=== PATIENT | female | born 1975 | race American Indian/Alaskan Native ===

== ENCOUNTER 2017-05-08 10:41 | Emergency (ER) | payer OTHER ==
[2017-05-08 10:41] VITALS: BMI 39.4
[2017-05-08 10:49] VITALS: RESP 18
[2017-05-08] MEDS ORDERED: Sodium Chloride 0.9% 1,000 ML IV ONE (11:39)
[2017-05-08] MEDS ORDERED: Dexamethasone 4 mg/1 ml IVP STA (11:40)
[2017-05-08] MEDS ORDERED: Sodium Chloride 0.9% 1,000 ML ONE (11:51)
[2017-05-08] MEDS ORDERED: Dexamethasone 4 mg/1 ml ONE (11:52)
--- NOTE | 2017-05-08 11:55 | C.PDOC ---
History Of Present Illness 41 year old female comes in complaining of right-sided back pain that radiates down the right leg for the past few days. Patient is seeing pain management and is taking Tramadol with mild relief, and has been taking it for 1.5 months. Patient also reports migraine type headache and was seen at [place] for the same symptoms. Patient was given meds in the ER, but is unsure of what she was given. Patient states that the headache has resolved, but the back pain still persists and was discharge from the hospital without any meds. Today she reports fever and urine appeared dark. Denies weakness, numbness, trauma, or any other complaints. Time Seen by Provider: 05/08/17 11:20 Chief Complaint (Nursing): Back Pain History Per: Patient History/Exam Limitations: no limitations Onset/Duration Of Symptoms: Days (Few days) Current Symptoms Are (Timing): Still Present Quality Of Discomfort: "Pain" Severity: Mild Associated Symptoms: denies: New Weakness, New Numbness Recent travel outside of the [place]: No Additional History Per: Patient Past Medical History Reviewed: Historical Data, Nursing Documentation, Vital Signs Vital Signs: Last Vital Signs Temp 89.6 F L 05/08/17 14:27 Pulse 72 05/08/17 14:27 Resp 18 05/08/17 14:27 BP 104/70 05/08/17 14:27 Pulse Ox 100 05/08/17 14:47 - Medical History PMH: Anxiety, Back Problems, Bronchitis, Depression, Diabetes (pre), HIV, HTN Surgical History: No Surg Hx Family History: States: Unknown Family Hx - Social History Hx Tobacco Use: Yes Hx Alcohol Use: No Hx Substance Use: No - Immunization History Hx Tetanus Toxoid Vaccination: Yes Hx Influenza Vaccination: Yes Hx Pneumococcal Vaccination: Yes Review Of Systems Constitutional: Positive for: Fever Cardiovascular: Negative for: Chest Pain, Palpitations Respiratory: Negative for: Cough, Shortness of Breath Gastrointestinal: Negative for: Vomiting, Abdominal Pain, Diarrhea Genitourinary: Positive for: Frequency. Negative for: Dysuria Musculoskeletal: Positive for: Back Pain Neurological: Positive for: Headache. Negative for: Weakness, Numbness Physical Exam - Physical Exam Appears: Non-toxic, No Acute Distress Skin: Warm, Dry Head: Atraumatic, Normacephalic Eye(s): bilateral: Normal Inspection Neck: Normal ROM Chest: Symmetrical Cardiovascular: Rhythm Regular, No Murmur Respiratory: Normal Breath Sounds, No Rales, No Rhonchi, No Wheezing Gastrointestinal/Abdominal: Soft, No Tenderness, No Distention, No Guarding Back: Normal Inspection (no rash), No CVA Tenderness, No Vertebral Tenderness, Paraspinal Tenderness (Paralumbar) Extremity: Normal ROM (x4), No Tenderness, No Pedal Edema, No Deformity, No Swelling Neurological/Psych: Oriented x3, Normal Speech, Normal Motor, Normal Sensation, Other (No focal deficit) Gait: Steady ED Course And Treatment - Laboratory Results Result Diagrams: 05/08/17 11:47 05/08/17 11:47 Lab Interpretation: No Acute Changes O2 Sat by Pulse Oximetry: 100 (RA) Pulse Ox Interpretation: Normal - Other Rad Abd & Pelvis CT X-Ray: Viewed By Me, Read By Radiologist Interpretation: Accession No. : [id number]. Patient Name / ID : ASHLEY WEN / [id number]. Exam Date : 05/08/2017 13:02:28 ( Approved ). Study Comment : Sex / Age : F / 41Y. Creator : Demar Allan MD. Dictator : Labor Relations Consultant : Job Order Clerk : Demar Allan MD. Approver2 : Report Date : 05/08/2017 14:08:32. My Comment : . PROCEDURE: CT abdomen pelvis dated . HISTORY: Right flank and low back pain, blood in urine. COMPARISON : None. TECHNIQUE: Contiguous helical/transaxial images of the abdomen and pelvis. Oral contrast was administered. No IV contrast given. Coronal and Sagittal reformats generated. Radiation dose: Total exam DLP = 1124.9mGy-cm. This CT exam was performed using one or more of the following dose reduction techniques: Automated exposure control, adjustment of the mA and/or kV according to patient size, and/or use of iterative reconstruction technique. FINDINGS: LOWER THORAX: Minor focal areas of presumed atelectasis and or scarring both lower lung gage. . LIVER: Liver exhibits normal size measuring approximately 17 cm in CC dimension. The to the no obvious hepatic mass collection or calcification seen on this noncontrast study the listen. GALLBLADDER AND BILE DUCTS: Multiple intraluminal gallbladder calculi are present. PANCREAS: The pancreas is slightly atrophic and fatty replaced. The no obvious pancreatic mass or collection this noncontrast study. No calcification or significant ductal dilatation or calcification. SPLEEN: Spleen exhibits normal size and attenuation pattern without mass collection or calcification. ADRENALS: No adrenal lesions. KIDNEYS AND URETERS: The kidneys demonstrate relatively symmetric size. No elbow evidence of nephrolithiasis or hydronephrosis. No obvious renal mass or collection seen on this noncontrast study seen on. BLADDER: The urinary bladder is incompletely distended which may in part account for thick-walled appearance. Cystitis must be excluded. REPRODUCTIVE: Unremarkable as visualized. . APPENDIX: Normal- appearing appendix of best seen on coronal image number [id number]. BOWEL: Evaluation of the bowel is limited due to the lack of oral contrast. Stomach is incompletely distended which presumably accounts for thick-walled appearance. Gastritis not excluded. Visualized loops of small bowel exhibit normal contour and caliber. No evidence acute mechanical small bowel obstruction. . Stool and air seen throughout the large bowel. There are a few scattered colonic diverticula however no radiographic evidence of acute diverticulitis. PERITONEUM: Unremarkable. No fluid collection. No free air. The small fat containing umbilical hernia. A 2nd small slightly more superiorly located fat containing ventral wall hernia is present. LYMPH NODES: Unremarkable. No enlarged lymph nodes. VASCULATURE: Unremarkable. No aortic aneurysm. BONES: There are no acute compression fractures no retropulsed fragments. Minor chronic anterior stature loss of the T12 and to a lesser degree L1 segments. OTHER FINDINGS: None. IMPRESSION: No evidence of nephrolithiasis. Incomplete distention of the urinary bladder which may in part account for thick-walled appearance however cystitis must be excluded ; correlation with urinalysis recommended. Cholelithiasis. Few scattered colonic diverticula however no radiographic evidence of acute diverticulitis. Medical Decision Making Medical Decision Making: Impression: back pain, sciatica Plans: * CT Abd/Pel w/o * Decadron * Valium * Toradol * IV fluids * Blood labs * UA NJRX: 04/23/2017 TRAMADOL HCL 50 MG TABLET 90 03/23/2017 TRAMADOL HCL 50 MG TABLET 60 06/12/2016 OXYCODONE-ACETAMINOPHEN 5-325 8 Progress: Labs reviewed and no leukocytosis or electrolyte abnormality. UA shows UTI and blood. Will order CT scan. CT shows no nephrolithiasis and consistent with cytitis. Upon reevaluation patient reports pain has improved. Will treat with Cipro. Patient given copy of all results and instructed to follow up with PCP and pain management. Disposition Counseled Patient/Family Regarding: Diagnosis, Need For Followup, Rx Given - Disposition Referrals: [facility] [Outside] Disposition: HOME/ ROUTINE Disposition Time: 14:33 Condition: STABLE Additional Instructions: Follow up with your primary medical doctor or clinic in 2-5 days for further evaluation. Take medications as prescribed. Return to the emergency department at any time if symptoms persist or worsen. Prescriptions: Ciprofloxacin [Cipro] 500 mg PO BID #10 tab Methocarbamol [Robaxin] 750 mg PO Q8 PRN #21 tab PRN Reason: Muscle Spasm Instructions: Urinary Tract Infection in Women (DC), Sciatica (ED) - POA Present On Arrival: None - Clinical Impression Clinical Impression: UTI (urinary tract infection), Back pain, Sciatica - Scribe Statement The provider has reviewed the documentation as recorded by the Scribmoiht howe All medical record entries made by the Binh were at my direction and personally dictated by me. I have reviewed the chart and agree that the record accurately reflects my personal performance of the history, physical exam, medical decision making, and the department course for this patient. I have also personally directed, reviewed, and agree with the discharge instructions and disposition.
[2017-05-08 11:56] LABS: BASO % 0.5 % (0.0-2.0); HEMATOCRIT 34.7 % (34.0-47.0); LYMPH # 1.3 K/uL (1.0-4.3); LYMPH % 36.7 % (20.0-40.0); MEAN CELL VOLUME 77.5 fL (81.0-99.0); MEAN CORPUSCULAR HEMOGLOBIN 25.3 pg (27.0-31.0); MEAN CORPUSCULAR HGB CONC 32.7 g/dL (33.0-37.0); MEAN PLATELET VOLUME 9.7 fL (7.2-11.7); MONO # 0.3 K/uL (0.0-0.8); MONO % 9.6 % (0.0-10.0); NRBC % 0.5 % (0.0-2.0); RED CELL DISTRIBUTION WIDTH 20.1 % (11.5-14.5); WHITE BLOOD COUNT 3.5 K/uL (4.8-10.8)
[2017-05-08 11:59] LABS: CHLORIDE 102 mmol/L (98-107); RBC URINE 34 /hpf (0-3); URINE BACTERIA RARE (<OCC); URINE BILIRUBIN NEGATIVE (NEGATIVE); URINE BLOOD 3+ (NEGATIVE); URINE COLOR Yellow (YELLOW); URINE GLUCOSE (UA) NORMAL (Normal); URINE KETONE TRACE mg/dL (NEGATIVE); URINE LEUKOCYTE ESTERASE 1+ Leu/uL (Negative); URINE PROTEIN 2+ mg/dL (NEGATIVE); URINE UROBILINOGEN NORMAL mg/dL (0.2-1.0); WBC URINE 26 /hpf (0-5)
[2017-05-08 12:00] LABS: SODIUM 138 mmol/L (132-148)
[2017-05-08 12:01] LABS: POTASSIUM 3.1 mmol/L (3.6-5.2)
[2017-05-08] MEDS ORDERED: Potassium Chloride 20 mEq ER Tab PO STA (12:02)
[2017-05-08 12:03] LABS: ALKALINE PHOSPHATASE 80 U/L (38-126); AST/SGOT 26 U/L (14-36); BILIRUBIN,TOTAL 0.3 mg/dL (0.2-1.3); BLOOD UREA NITROGEN 11 mg/dL (7-17); CARBON DIOXIDE 20 mmol/L (22-30); GFR AFRICAN-AMERICAN > 60; TOTAL PROTEIN 7.9 g/dL (6.3-8.3)
[2017-05-08 12:04] LABS: ALT/SGPT 33 U/L (9-52); CALCIUM 8.6 mg/dl (8.6-10.4); GLUCOSE,RANDOM 96 mg/dL (65-105)
[2017-05-08] MEDS ORDERED: Potassium Chloride 20 mEq ER Tab PO ONE (12:34)
[2017-05-08] MEDS ORDERED: Potassium Chloride 20 mEq/15 ml LIQ UD ONE (12:38)
[2017-05-08] MEDS ORDERED: Potassium Chloride 20 mEq/15 ml LIQ UD PO STA (12:39)
--- NOTE | 2017-05-08 14:09 | CT ---
PROCEDURE: CT abdomen pelvis dated 05/08/2017 HISTORY: Right flank and low back pain, blood in urine COMPARISON: None. TECHNIQUE: Contiguous helical/transaxial images of the abdomen and pelvis. Oral contrast was administered. No IV contrast given. Coronal and Sagittal reformats generated. Radiation dose: Total exam DLP = 1124.9mGy-cm. This CT exam was performed using one or more of the following dose reduction techniques: Automated exposure control, adjustment of the mA and/or kV according to patient size, and/or use of iterative reconstruction technique. FINDINGS: LOWER THORAX: Minor focal areas of presumed atelectasis and or scarring both lower lung gage. . LIVER: Liver exhibits normal size measuring approximately 17 cm in CC dimension. The to the no obvious hepatic mass collection or calcification seen on this noncontrast study the listen GALLBLADDER AND BILE DUCTS: Multiple intraluminal gallbladder calculi are present. PANCREAS: The pancreas is slightly atrophic and fatty replaced. The no obvious pancreatic mass or collection this noncontrast study. No calcification or significant ductal dilatation or calcification. SPLEEN: Spleen exhibits normal size and attenuation pattern without mass collection or calcification. ADRENALS: No adrenal lesions. KIDNEYS AND URETERS: The kidneys demonstrate relatively symmetric size. No elbow evidence of nephrolithiasis or hydronephrosis. No obvious renal mass or collection seen on this noncontrast study seen on BLADDER: The urinary bladder is incompletely distended which may in part account for thick-walled appearance. Cystitis must be excluded. REPRODUCTIVE: Unremarkable as visualized. . APPENDIX: Normal-appearing appendix of best seen on coronal image number [id number] BOWEL: Evaluation of the bowel is limited due to the lack of oral contrast. Stomach is incompletely distended which presumably accounts for thick-walled appearance. Gastritis not excluded. Visualized loops of small bowel exhibit normal contour and caliber. No evidence acute mechanical small bowel obstruction. . Stool and air seen throughout the large bowel. There are a few scattered colonic diverticula however no radiographic evidence of acute diverticulitis. PERITONEUM: Unremarkable. No fluid collection. No free air. The small fat containing umbilical hernia. A 2nd small slightly more superiorly located fat containing ventral wall hernia is present LYMPH NODES: Unremarkable. No enlarged lymph nodes. VASCULATURE: Unremarkable. No aortic aneurysm. BONES: There are no acute compression fractures no retropulsed fragments. Minor chronic anterior stature loss of the T12 and to a lesser degree L1 segments. OTHER FINDINGS: None. IMPRESSION: No evidence of nephrolithiasis. Incomplete distention of the urinary bladder which may in part account for thick-walled appearance however cystitis must be excluded ; correlation with urinalysis recommended. Cholelithiasis. Few scattered colonic diverticula however no radiographic evidence of acute diverticulitis.
[2017-05-08 14:28] VITALS: BP 104/70; PULSE 72; TEMP 89.6
[2017-05-08 14:31] VITALS: O2SAT 100
== END 2017-05-08 15:03 | disposition home or self-care (01) ==
LOC: C.ER 10:41
DX: N39.0 Urinary tract infection, site not specified (principal); M54.9 Dorsalgia, unspecified; M54.30 Sciatica, unspecified side
CPT/HCPCS: 74176; 80053; 81001; 84703; 85025; 96361; 96374; 96375; 99284; J1100; J1885; J7040

== ENCOUNTER 2017-05-09 22:27 | Inpatient (IN) | payer OTHER ==
[2017-05-09 22:28] VITALS: BMI 39.4
[2017-05-09] MEDS ORDERED: DiphenhydrAMINE 50 mg/ml Inj IVP STA (23:09)
[2017-05-09] MEDS ORDERED: Sodium Chloride 0.9% 1,000 ML IV ONE (23:10)
--- NOTE | 2017-05-09 23:38 | CT ---
EXAM: CT Head Without Intravenous Contrast CLINICAL HISTORY: 41 years old, female; Pain; Headache; Migraine; Aura effect not specified; Other: Unknown; Additional info: QUIROZ TECHNIQUE: Axial computed tomography images of the head/brain without intravenous contrast. All CT scans at this facility use one or more dose reduction techniques, viz.: automated exposure control; ma/kV adjustment per patient size (including targeted exams where dose is matched to indication; i.e. head); or iterative reconstruction technique. Coronal and sagittal reformatted images were created and reviewed. COMPARISON: No relevant prior studies available. FINDINGS: Brain: No acute intracranial hemorrhage. No significant white matter disease. No edema. Ventricles: No significant ventriculomegaly. Bones: No acute displaced fracture. Sinuses: Unremarkable as visualized. No acute sinusitis. Mastoid air cells: Unremarkable as visualized. No mastoid effusion. IMPRESSION: No acute intracranial hemorrhage, or suspicious mass effect.
--- NOTE | 2017-05-09 23:46 | C.PDOC ---
History Of Present Illness 41 year old female with a history of HIV, CD4 count is unknown and undetectable viral load, presents to the ED with complaints of headache for one week with associated nausea and vomiting. Patient has been seen in this ED three times in one week for similar symptoms. A abdomen pelvis CT was performed yesterday that was negative and patient was discharged with Cipro for UTI diagnosis. Patient also note history of "sciatica pain" and denies any trauma. Patient denies visual changes, fever, chills, dysuria, or incontinence. Time Seen by Provider: 05/09/17 22:59 Chief Complaint (Nursing): Headache History Per: Patient History/Exam Limitations: no limitations Onset/Duration Of Symptoms: Days (1 week ), Persistent Current Symptoms Are (Timing): Still Present Quality: "Pain" Preceeding Symptoms: None Associated Symptoms: Nausea, Vomiting. denies: Photophobia, Blurred Vision Recent travel outside of the [place]: No Additional History Per: Prior Records Past Medical History Reviewed: Historical Data, Nursing Documentation, Vital Signs Vital Signs: Last Vital Signs Temp 100.7 F H 05/09/17 22:41 Pulse 90 05/09/17 22:41 Resp 16 05/09/17 22:41 BP 108/72 05/09/17 22:41 Pulse Ox 97 05/10/17 00:34 - Medical History PMH: Anxiety, Back Problems, Bronchitis, Depression, Diabetes (pre), HIV, HTN Family History: States: Unknown Family Hx - Social History Hx Tobacco Use: Yes Hx Alcohol Use: No Hx Substance Use: No - Immunization History Hx Tetanus Toxoid Vaccination: Yes Hx Influenza Vaccination: Yes Hx Pneumococcal Vaccination: Yes Review Of Systems Constitutional: Negative for: Fever, Chills Cardiovascular: Negative for: Chest Pain, Palpitations Respiratory: Negative for: Cough, Shortness of Breath Gastrointestinal: Positive for: Nausea, Vomiting. Negative for: Abdominal Pain , Diarrhea Genitourinary: Negative for: Dysuria, Incontinence Musculoskeletal: Positive for: Back Pain (sciatica pain ) Neurological: Positive for: Headache Physical Exam - Physical Exam Appears: Non-toxic, No Acute Distress Skin: Warm, Dry Head: Atraumatic, Normacephalic Eye(s): bilateral: Normal Inspection, PERRL, EOMI Oral Mucosa: Moist Neck: Normal ROM, Supple Chest: Symmetrical, No Deformity Cardiovascular: Rhythm Regular, No Murmur Respiratory: Normal Breath Sounds, No Rales, No Rhonchi, No Wheezing Gastrointestinal/Abdominal: Soft, No Tenderness, No Distention, No Guarding, No Rebound Back: Straight Leg Raising Extremity: Normal ROM, No Tenderness ED Course And Treatment - Laboratory Results Result Diagrams: 05/09/17 23:56 05/09/17 23:56 O2 Sat by Pulse Oximetry: 97 (RA) - CT Scan/US CT Head Without Intravenous Contrast Other Rad Studies (CT/US): Read By Radiologist, Radiology Report Reviewed CT/US Interpretation: FINDINGS: Brain: No acute intracranial hemorrhage. No significant white matter disease. No edema. Ventricles: No significant ventriculomegaly. Bones: No acute displaced fracture. Sinuses: Unremarkable as visualized. No acute sinusitis. Mastoid air cells: Unremarkable as visualized. No mastoid effusion. IMPRESSION: No acute intracranial hemorrhage , or suspicious mass effect. Progress Note: Labs, blood work, and head CT were ordered. Patient was given Tylenol, Rocephin, Benadryl, Reglan, Vancomycin, and IV fluids. Disposition - Disposition Disposition: HOSPITALIZED Disposition Time: 01:54 Condition: STABLE - Clinical Impression Clinical Impression: Headache, Fever - Scribe Statement The provider has reviewed the documentation as recorded by the Scribe Mabel Worley All medical record entries made by the Reubenibmohit were at my direction and personally dictated by me. I have reviewed the chart and agree that the record accurately reflects my personal performance of the history, physical exam, medical decision making, and the department course for this patient. I have also personally directed, reviewed, and agree with the discharge instructions and disposition.
[2017-05-09] MEDS ORDERED: cefTRIAXone 2 GM in Sodium Chloride 0.9% 100 ML IVPB STA (23:48)
[2017-05-10] LABS: BASO % 0.6 % (0.0-2.0); EOS % 0.2 % (0.0-4.0); HEMATOCRIT 36.6 % (34.0-47.0); LYMPH # 1.3 K/uL (1.0-4.3); LYMPH % 42.8 % (20.0-40.0); MEAN CELL VOLUME 77.5 fL (81.0-99.0); MEAN CORPUSCULAR HEMOGLOBIN 25.1 pg (27.0-31.0); MEAN CORPUSCULAR HGB CONC 32.4 g/dL (33.0-37.0); MEAN PLATELET VOLUME 9.8 fL (7.2-11.7); MONO # 0.2 K/uL (0.0-0.8); MONO % 7.7 % (0.0-10.0); NRBC % 0.2 % (0.0-2.0); RED CELL DISTRIBUTION WIDTH 20.4 % (11.5-14.5)
[2017-05-10] MEDS ORDERED: Sodium Chloride 0.9% 1,000 ML ONE (00:01)
[2017-05-10] MEDS ORDERED: DiphenhydrAMINE 50 mg/ml Inj ONE (00:01)
[2017-05-10 00:07] LABS: CHLORIDE 101 mmol/L (98-107); POTASSIUM 3.5 mmol/L (3.6-5.2); SODIUM 139 mmol/L (132-148)
[2017-05-10 00:08] LABS: INR 1.2
[2017-05-10 00:10] LABS: ALKALINE PHOSPHATASE 74 U/L (38-126); ALT/SGPT 41 U/L (9-52); AST/SGOT 53 U/L (14-36); BILIRUBIN,TOTAL 0.4 mg/dL (0.2-1.3); BLOOD UREA NITROGEN 11 mg/dL (7-17); CALCIUM 8.7 mg/dl (8.6-10.4); CARBON DIOXIDE 22 mmol/L (22-30); GLUCOSE,RANDOM 89 mg/dL (65-105); TOTAL PROTEIN 7.9 g/dL (6.3-8.3)
[2017-05-10] MEDS ORDERED: cefTRIAXone IV 1 gm in Dextros 100 ML IVPB ONE (00:35)
[2017-05-10 00:39] LABS: RBC URINE 79 /hpf (0-3); URINE BACTERIA OCC (<OCC); URINE BILIRUBIN NEGATIVE (NEGATIVE); URINE BLOOD 3+ (NEGATIVE); URINE COLOR Amber (YELLOW); URINE GLUCOSE (UA) NORMAL (Normal); URINE KETONE TRACE mg/dL (NEGATIVE); URINE LEUKOCYTE ESTERASE 2+ Leu/uL (Negative); URINE PROTEIN 2+ mg/dL (NEGATIVE); URINE UROBILINOGEN NORMAL mg/dL (0.2-1.0); WBC URINE 49 /hpf (0-5)
[2017-05-10 00:56] LABS: FLUID TYPE SPINAL FLUID
[2017-05-10 01:26] LABS: GFR AFRICAN-AMERICAN > 60
[2017-05-10] MEDS ORDERED: Vancomycin 1 GM 1 GM/250 ML BAG IVPB ONE (01:45)
--- NOTE | 2017-05-10 02:31 | CP.PCM.HP ---
History of Present Illness - History of Present Illness History of Present Illness: PGY-[address] H&P for [address] Doll CC: Headache This is a 41 year old female with PMHx HIV, Migraines, Sciatica who presents to the hospital complaining of headache. Patient states that her migraines are usually intermittent however during this last week they have worsened and become constant. Patient describes the sensation as a pulsatile pain behind her eyes. Patient complains of photophobia but denies phonophobia, scintillating scotomas. Patient admits subjective fever for about 3 days. Denies chills, chest pain, dyspnea, cough, abdominal pain, dysuria. Patient denies neck pain or stiff neck. Patient has also had poor appetite. Patient also complaining of intractable nausea and vomiting for the past 3 days. The contents of the vomit are usually food. Denies hematemesis. Patient also complaining of her usual low back pain which radiates down her legs. PMHx: HIV, Migraines, Sciatica PSHx: denies Allergies: PCN Social: Denies tobacco, alcohol, drugs. Family Hx: denies PMD: none ID: [facility] Aura Tabares[facility] Pain management: Dr. Araujo Home meds: Tramadol, dosage unspecified. (patient cannot recall HIV meds but pharmacy is the same one in the building of the [facility] [place]) Present on Admission - Present on Admission Any Indicators Present on Admission: No Review of Systems - Constitutional Constitutional: Fever. absent: Chills - EENT Eyes: Photophobia. absent: Change in Vision, Floaters - Cardiovascular Cardiovascular: absent: Chest Pain, Palpitations - Respiratory Respiratory: absent: Cough, Dyspnea, Wheezing - Gastrointestinal Gastrointestinal: Nausea, Vomiting. absent: Abdominal Pain - Musculoskeletal Musculoskeletal: Back Pain, Radiating Pain into Limb - Neurological Neurological: Headaches, Radicular Pain. absent: Dizziness, Weakness - Endocrine Endocrine: absent: Palpitations Past Patient History - Infectious Disease Hx of Infectious Diseases: None - Past Social History Smoking Status: Never Smoked - CARDIAC Hx Hypertension: Yes - PULMONARY Hx Bronchitis: Yes - ENDOCRINE/METABOLIC Hx Diabetes Mellitus Type 1: No Hx Diabetes Mellitus Type 2: No - HEMATOLOGICAL/ONCOLOGICAL Hx Human Immunodeficiency Virus (HIV): Yes - MUSCULOSKELETAL/RHEUMATOLOGICAL Hx Musculoskeletal Disorders: Yes - PSYCHIATRIC Hx Anxiety: Yes Hx Depression: Yes Hx Substance Use: No - SURGICAL HISTORY Hx Surgeries: Yes Hx Tubal Ligation: Yes Other/Comment: right and left great toe ingrown nail - ANESTHESIA Hx Anesthesia: Yes Meds Allergies/Adverse Reactions: Allergies Allergy/AdvReac Type Severity Reaction Status Date / Time Penicillins AdvReac NAUSEA Verified 05/09/17 22:45 Physical Exam - Constitutional Appears: No Acute Distress Additional comments: sleepy. been given Valium before patient encounter. - Head Exam Head Exam: ATRAUMATIC, NORMOCEPHALIC - Eye Exam Eye Exam: EOMI, PERRL Additional comments: pinpoint - ENT Exam ENT Exam: Mucous Membranes Moist - Respiratory Exam Respiratory Exam: Clear to Auscultation Bilateral. absent: Rales, Rhonchi, Wheezes - Cardiovascular Exam Cardiovascular Exam: REGULAR RHYTHM, +S1, +S2 - GI/Abdominal Exam GI & Abdominal Exam: Normal Bowel Sounds, Soft. absent: Tenderness - Back Exam Back exam: absent: CVA tenderness (L), CVA tenderness (R) - Neurological Exam Neurological exam: Alert, CN II-XII Intact, Oriented x3 Additional comments: Full ROM of the neck. Negative Brudzinski and Kernig signs. Muscle strength symmetric bilaterally upper and lower extremities. - Skin Skin Exam: Dry, Intact, Normal Color, Warm Results - Vital Signs Recent Vital Signs: Last Vital Signs Temp 100.7 F H 05/09/17 22:41 Pulse 90 05/09/17 22:41 Resp 16 05/09/17 22:41 BP 108/72 05/09/17 22:41 Pulse Ox 97 05/10/17 01:54 - Labs Result Diagrams: 05/10/17 04:53 05/10/17 04:53 Labs: Laboratory Results - last 24 hr 05/09/17 05/09/17 05/09/17 23:56 23:56 23:56 WBC 3.0 L RBC 4.72 Hgb 11.9 Hct 36.6 MCV 77.5 L MCH 25.1 L MCHC 32.4 L RDW 20.4 H Plt Count 132 MPV 9.8 Neut % (Auto) 48.7 L Lymph % (Auto) 42.8 H Butts % (Auto) 7.7 Eos % (Auto) 0.2 Baso % (Auto) 0.6 Neut # 1.4 L Lymph # 1.3 Butts # 0.2 Eos # 0.0 Baso # 0.0 PT 13.2 H INR 1.2 APTT 36 H Sodium 139 Potassium 3.5 L Chloride 101 Carbon Dioxide 22 Anion Gap 19 BUN 11 Creatinine 0.7 Est GFR ( Amer) > 60 Est GFR (Non-Af Amer) > 60 Random Glucose 89 Calcium 8.7 Total Bilirubin 0.4 AST 53 H D ALT 41 Alkaline Phosphatase 74 Total Protein 7.9 Albumin 3.9 Globulin 4.0 H Albumin/Globulin Ratio 1.0 Lipase 159 Urine Color Urine Clarity Urine pH Ur Specific [place] Urine Protein Urine Glucose (UA) Urine Ketones Urine Blood Urine Nitrate Urine Bilirubin Urine Urobilinogen Ur Leukocyte Esterase Urine WBC (Auto) Urine RBC (Auto) Ur Squamous Epith Cells Urine Bacteria Urine HCG, Qual Fluid Type CSF Volume CSF Appearance CSF WBC CSF RBC CSF Total Cell Counted CSF Monos/Macrophages CSF Comment CSF Glucose CSF Total Protein 05/10/17 05/10/17 05/10/17 00:26 00:54 00:54 WBC RBC Hgb Hct MCV MCH MCHC RDW Plt Count MPV Neut % (Auto) Lymph % (Auto) Butts % (Auto) Eos % (Auto) Baso % (Auto) Neut # Lymph # Butts # Eos # Baso # PT INR APTT Sodium Potassium Chloride Carbon Dioxide Anion Gap BUN Creatinine Est GFR ( Amer) Est GFR (Non-Af Amer) Random Glucose Calcium Total Bilirubin AST ALT Alkaline Phosphatase Total Protein Albumin Globulin Albumin/Globulin Ratio Lipase Urine Color Brittany Urine Clarity Hazy Urine pH 5.0 Ur Specific [place] 1.023 Urine Protein 2+ H Urine Glucose (UA) Normal Urine Ketones Trace Urine Blood 3+ H Urine Nitrate Negative Urine Bilirubin Negative Urine Urobilinogen Normal Ur Leukocyte Esterase 2+ H Urine WBC (Auto) 49 H Urine RBC (Auto) 79 H Ur Squamous Epith Cells 13 H Urine Bacteria Occ H Urine HCG, Qual Negative Fluid Type Spinal fluid CSF Volume 1 CSF Appearance Clear/colorless CSF WBC 3.0 CSF RBC 2.0 H CSF Total Cell Counted TEST NOT PERFORMED CSF Monos/Macrophages TEST NOT PERFORMED CSF Comment CSF Glucose 49 CSF Total Protein 45.0 Assessment & Plan - Assessment and Plan (Free Text) Plan: Rule out Meningitis Unlikely septic meningitis due to lumbar puncture values. WBC, protein, glucose WNL Dr. Doll requested a neurology consult for Dr. Narayan Morrison for history of migraines F/u additional CSF serology History of HIV F/u CD4/CD8 subset panel 4 F/u Viral load F/u CSF pathology studies for HSV, cryptococcus Intractable Nausea/Vomiting NPO for now Zofran prn on board Prophylactic Measure SCDs Protonix 40 mg PO Case DW Dr. Lavon Tillman PGY-1
[2017-05-10 05:04] LABS: BASO % 0.8 % (0.0-2.0); EOS % 0.2 % (0.0-4.0); HEMATOCRIT 34.7 % (34.0-47.0); LYMPH # 1.1 K/uL (1.0-4.3); LYMPH % 47.9 % (20.0-40.0); MEAN CELL VOLUME 77.1 fL (81.0-99.0); MEAN CORPUSCULAR HEMOGLOBIN 24.9 pg (27.0-31.0); MEAN CORPUSCULAR HGB CONC 32.3 g/dL (33.0-37.0); MEAN PLATELET VOLUME 10.1 fL (7.2-11.7); MONO # 0.2 K/uL (0.0-0.8); MONO % 7.9 % (0.0-10.0); NRBC % 0.3 % (0.0-2.0); RED CELL DISTRIBUTION WIDTH 19.4 % (11.5-14.5); WHITE BLOOD COUNT 2.2 K/uL (4.8-10.8)
[2017-05-10 05:08] LABS: CHLORIDE 104 mmol/L (98-107); POTASSIUM 3.2 mmol/L (3.6-5.2); SODIUM 139 mmol/L (132-148)
[2017-05-10 05:10] LABS: BILIRUBIN,TOTAL 0.3 mg/dL (0.2-1.3); GFR AFRICAN-AMERICAN > 60
[2017-05-10 05:11] LABS: ALKALINE PHOSPHATASE 60 U/L (38-126); ALT/SGPT 41 U/L (9-52); AST/SGOT 47 U/L (14-36); BLOOD UREA NITROGEN 9 mg/dL (7-17); CARBON DIOXIDE 20 mmol/L (22-30); GLUCOSE,RANDOM 97 mg/dL (65-105)
[2017-05-10 05:12] VITALS: RESP 20
[2017-05-10 05:12] LABS: CALCIUM 7.9 mg/dl (8.6-10.4)
[2017-05-10 05:17] LABS: ALB/GLOB RATIO 0.9 (1.0-2.1)
--- NOTE | 2017-05-10 11:15 | CP.PCM.PN ---
Subjective - Date & Time of Evaluation Date of Evaluation: 05/10/17 Time of Evaluation: 08:00 - Subjective Subjective: Medicine Note for Dr. Doll Patient was seen and examined at bedside. Patient reports she continues to have headaches. Denied any more nausea or vomiting, admitted to being hungry and wanted to eat some food. Denied fever, chills, SOB, chest pain, abdominal pain, n/v/d/c, or urinary symptoms. Objective - Vital Signs/Intake and Output Vital Signs (last 24 hours): Temp Pulse Resp BP Pulse Ox 98.8 F 72 20 115/77 98 05/10/17 08:31 05/10/17 08:31 05/10/17 08:31 05/10/17 08:31 05/10/17 08:31 - Medications Medications: Current Medications Acetaminophen (Tylenol 325mg Tab) 650 mg PO Q6 PRN PRN Reason: Fever >100.4 F Last Admin: 05/10/17 08:56 Dose: 650 mg Acetaminophen/Butalbital/Caffeine (Fioricet) 1 tab PO Q4 PRN PRN Reason: Headache Sodium Chloride (Sodium Chloride 0.9%) 1,000 mls @ 100 mls/hr IV .Q10H [facility] Ciprofloxacin (Cipro 400mg/200ml Dsw) 400 mg in 200 mls @ 133 mls/hr IVPB Q12H [facility] Ketorolac Tromethamine (Toradol) 30 mg IV Q6 PRN PRN Reason: Pain, moderate (4-7) Ondansetron HCl (Zofran Inj) 4 mg IVP Q6 PRN PRN Reason: Nausea/Vomiting Pantoprazole Sodium (Protonix Ec Tab) 40 mg PO DAILY [facility] Potassium Chloride (K-Dur 20 Meq Er Tab) 40 meq PO BID [facility] Stop: 05/11/17 10:31 - Labs Labs: 05/10/17 04:53 05/10/17 04:53 PT 13.2 SECONDS (9.7-12.2) H 05/09/17 23:56 INR 1.2 05/09/17 23:56 APTT 36 SECONDS (21-34) H 05/09/17 23:56 - Additional Findings Additional findings: - Constitutional Appears: No Acute Distress Additional comments: sleepy. been given Valium before patient encounter. - Head Exam Head Exam: ATRAUMATIC, NORMOCEPHALIC - Eye Exam Eye Exam: EOMI, PERRL Additional comments: - ENT Exam ENT Exam: Mucous Membranes Moist - Respiratory Exam Respiratory Exam: Clear to Auscultation Bilateral. absent: Rales, Rhonchi, Wheezes - Cardiovascular Exam Cardiovascular Exam: REGULAR RHYTHM, +S1, +S2 - GI/Abdominal Exam GI & Abdominal Exam: Normal Bowel Sounds, Soft. absent: Tenderness - Back Exam Back exam: absent: CVA tenderness (L), CVA tenderness (R) - Neurological Exam Neurological exam: Alert, CN II-XII Intact, Oriented x3 Additional comments: Full ROM of the neck. Negative Brudzinski and Kernig signs. Muscle strength symmetric bilaterally upper and lower extremities. - Skin Skin Exam: Dry, Intact, Normal Color, Warm Assessment and Plan - Assessment and Plan (Free Text) Plan: Headache Hx of Migraines, rule out Meningitis Headache x 1 week did not improve with analgesics. nausea, vomiting, no photophobia, Full ROM of the neck. Negative Brudzinski and Kernig signs. Head CT: No acute intracranial hemorrhage, or suspicious mass effect. Lumbar Spinal Tap CSF: clear/colorless, WBC 3.0, RBC 2.0, Glucose = 49, protein 45, Cryptococcus Ag - negative Unlikely septic meningitis due to lumbar puncture values Neurology consult for Dr. Narayan Morrison - help appreciated F/U CSF pathology studies for HSV, cryptococcus, Toxoplasma, culture * Fiorcet, tylenol PRN for headache * Started gabapentin 300mg PO QHS - as per Neuro UTI UA: +3blood, +2 LE, bacteria Allergy to PCN, started on Cipro IV F/U Urine culture History of HIV Last reported CD4 was 69, viral load undectable, patient is not on HAART Started on Bactrim DS Q12 F/u CD4/CD8 subset panel 4 F/u Viral load F/U RPR Hx of Sciatica Patient follows with pain management Prophylactic Measure GI PPX: Protonix 40 mg PO DVT PPX: SCDs DW Blanquita Valenzuela DO PGY-1
[2017-05-10] MEDS: Ciprofloxacin 400mg/200ml D5W 400 MG/200 ML BAG IVPB SCH ×2 (11:34→21:41)
[2017-05-10] MEDS: Pantoprazole 40 mg EC Tab PO SCH (11:34)
[2017-05-10] MEDS: Potassium Chloride 20 mEq ER Tab PO SCH ×2 (11:34→18:40)
[2017-05-10] MEDS: Sodium Chloride 0.9% 1,000 ML IV SCH ×2 (11:35→23:31)
[2017-05-10] MEDS: Apap-Butalbital-Caffeine 325-50-40mg Tab PO PRN ×2 (12:43→18:41)
[2017-05-10] MEDS: Tmp-Smz 800 mg-160 mg DS Tab PO SCH (14:30)
--- NOTE | 2017-05-10 16:32 | CP.PCM.CON ---
History of Present Illness - History of Present Illness History of Present Illness: 41 year old female with PMHx HIV, Migraines, Sciatica who presents to the hospital complaining of headache. Patient states that her migraines are usually intermittent however during this last week they have worsened and become constant. . Patient admits subjective fever for about 3 days. Denies chills, chest pain, dyspnea, cough, abdominal pain, dysuria. CD4 reportedly low despite adherence with HAART PMHx: HIV, Migraines, Sciatica PSHx: denies Allergies: PCN Social: Denies tobacco, alcohol, drugs. Infected through her - found out at time of 1999 Family Hx: denies Home meds: Tramadol, dosage unspecified. (patient cannot recall HIV meds but pharmacy is the same one in the [facility] at [place]) Review of Systems - Constitutional Constitutional: As Per HPI - EENT Eyes: absent: As Per HPI, Blind Spots, Blurred Vision, Change in Vision, Decreased Night Vision, Diplopia, Discharge, Dry Eye, Exophthalmos, Floaters, Irritation, Itchy Eyes, Loss of Peripheral Vision, Pain, Photophobia, Requires Corrective Lenses, Sees Flashes, Spots in Vision, Tunnel Vision, Other Visual Disturbances, Loss of Vision, Other Ears: absent: As Per HPI, Decreased Hearing, Ear Discharge, Ear Pain, Tinnitus, Abnormal Hearing, Disequilibrium, Dizziness, Other Nose/Mouth/Throat: absent: As Per HPI, Epistaxis, Nasal Congestion, Nasal Discharge, Nasal Obstruction, Nasal Trauma, Nose Pain, Post Nasal Drip, Sinus Pain, Sinus Pressure, Bleeding Gums, Change in Voice, Dental Pain, Dry Mouth, Dysphagia, Halitosis, Hoarsness, Lip Swelling, Mouth Lesions, Mouth Pain, Odynophagia, Sore Throat, Throat Swelling, Tongue Swelling, Facial Pain, Neck Pain, Neck Mass, Other - Cardiovascular Cardiovascular: absent: As Per HPI, Acrocyanosis, Chest Pain, Chest Pain at Rest , Chest Pain with Activity, Claudication, Diaphoresis, Dyspnea, Dyspnea on Exertion, Edema, Irregular Heart Rhythm, Pain Radiating to Arm/Neck/Jaw, Leg Edema, Leg Ulcers, Lightheadedness, Orthopnea, Palpitations, Paroxysmal Nocturnal Dyspnea, Pedal Edema, Radiating Pain, Rapid Heart Rate, Slow Heart Rate, Syncope, Other - Respiratory Respiratory: absent: As Per HPI, Cough, Dyspnea, Hemoptysis, Dyspnea on Exertion , Wheezing, Snoring, Stridor, Pain on Inspiration, Chest Congestion, Excessive Mucous Production, Change in Mucous Color, Pain with Coughing, Other - Gastrointestinal Gastrointestinal: absent: As Per HPI, Abdominal Pain, Belching, Bloating, Change in Bowel Habits, Change in Stool Character, Coffee Ground Emesis, Constipation, Cramping, Diarrhea, Dyspepsia, Dysphagia, Early Satiety, Excessive Flatus, Fecal Incontinence, Heartburn, Hematemesis, Hematochezia, Loose Stools, Melena, Nausea, Odynophagia, Temesmus, Vomiting, Other - Genitourinary Genitourinary: absent: As Per HPI, Change in Urinary Stream, Difficulty Urinating, Dysuria, Flank Pain, Hematuria, Pyuria, Nocturia, Urinary Incontinence, Urinary Frequency, Urinary Hesitance, Urinary Urgency, Voiding Freq/Small Amts, Freq UTI, Hx Renal/Bladder Calculi, Hx /Renal Surgery, Bladder Distension, Other - Reproductive: Female Reproductive:Female: absent: As Per HPI, Amenorrhea, Amenorrhea/ Control, Currently Menstual, Cycle <21 Days, Cycle >35 Days, Cycle Variable, Menses 1-7 Days, Menses >/= 8 Days, Menses Variable, Cycle > 4 Weeks Between, No Menses for 6 Months, Heavy Menses, Light Menses, Normal Menses, Spotting Between Cycles , S/P Hysterectomy, Menopausal, Post Menopausal, Premenarche, Abnormal Vaginal Bleeding, Dysmenorrhea, Dyspareunia, Genital Lesions, Genital Pruritis, Pelvic Pain, Prolapse Symptoms, Sexual Dysfunction, Vaginal Discharge, Vaginal Dryness , Vaginal Odor, Vaginal Pruritis, Other - Menstruation Menstruation: absent: As Per HPI, Amenorrhea, Amenorrhea/ Control, Currently Menstual, Cycle <21 Days, Cycle >35 Days, Cycle Variable, Menses 1-7 Days, Menses >/= 8 Days, Menses Variable, Cycle > 4 Weeks Between, No Menses for 6 Months, Heavy Menses, Light Menses, Normal Menses, Spotting Between Cycles , S/P Hysterectomy, Menopausal, Post Menopausal, Premenarche, Abnormal Vaginal Bleeding, Dysmenorrhea, Other - Musculoskeletal Musculoskeletal: absent: As Per HPI, Abnormal Gait, Arthralgias, Atrophy, Back Pain, Deformity, Joint Swelling, Limited Range of Motion, Loss of Height, Muscle Cramps, Muscle Weakness, Myalgias, Neck Pain, Numbness, Radiating Pain into Limb, Stiffness, Tingling, Other - Integumentary Integumentary: absent: As Per HPI, Acne, Alopecia, Bleeding Lesions, Change in Hair, Change in Nails, Change in Pigmentation, Changing Lesions, Dry Skin, Erythema, Furuncle, Hirsutism, Lesions, New Lesions, Non-Healing Lesions, Photosensitivity, Pruritus, Rash, Skin Pain, Skin Ulcer, Sores, Striae, Swelling , Unusual Bruising, Wounds, Jaundice, Other - Neurological Neurological: As Per HPI - Psychiatric Psychiatric: absent: As Per HPI, Abnormal Sleep Pattern, Anhedonia, Anxiety, Auditory Hallucinations, Behavioral Changes, Change in Appetite, Change in Libido, Confusion, Depression, Difficulty Concentrating, Hallucinations, Homicidal Ideation, Hopelessness, Irritability, Memory Loss, Mood Swings, Panic Attacks, Paranoia, Suicidal Ideation, Visual Hallucinations, Tactile Hallucinations, Other - Endocrine Endocrine: absent: As Per HPI, Change in Body Appearance, Change in Libido, Cold Intolorance, Deepening of Voice, Excessive Sweating, Fatigue, Flushing, Heat Intolorance, Increase in Ring/Shoe/Hat Size, Palpitations, Polydipsia, Polyphagia, Polyuria, Other - Hematologic/Lymphatic Hematologic: absent: As Per HPI, Easy Bleeding, Easy Bruising, Lymphadenopathy, Other Past Patient History - Infectious Disease Hx of Infectious Diseases: None - Past Medical History & Family History Past Medical History?: Yes - Past Social History Smoking Status: Never Smoked - CARDIAC Hx Hypertension: Yes - PULMONARY Hx Bronchitis: Yes - ENDOCRINE/METABOLIC Hx Diabetes Mellitus Type 1: No Hx Diabetes Mellitus Type 2: No - HEMATOLOGICAL/ONCOLOGICAL Hx Human Immunodeficiency Virus (HIV): Yes - MUSCULOSKELETAL/RHEUMATOLOGICAL Hx Musculoskeletal Disorders: Yes - PSYCHIATRIC Hx Anxiety: Yes Hx Depression: Yes Hx Substance Use: No - SURGICAL HISTORY Hx Surgeries: Yes Hx Tubal Ligation: Yes Other/Comment: right and left great toe ingrown nail - ANESTHESIA Hx Anesthesia: Yes Meds Allergies/Adverse Reactions: Allergies Allergy/AdvReac Type Severity Reaction Status Date / Time Penicillins AdvReac NAUSEA Verified 05/09/17 22:45 - Medications Medications: Current Medications Acetaminophen (Tylenol 325mg Tab) 650 mg PO Q6 PRN PRN Reason: Fever >100.4 F Last Admin: 05/10/17 08:56 Dose: 650 mg Acetaminophen/Butalbital/Caffeine (Fioricet) 1 tab PO Q4 PRN PRN Reason: Headache Last Admin: 05/10/17 12:43 Dose: 1 tab Gabapentin (Neurontin) 300 mg PO QPM [facility] Sodium Chloride (Sodium Chloride 0.9%) 1,000 mls @ 100 mls/hr IV .Q10H [facility] Last Admin: 05/10/17 11:35 Dose: 100 mls/hr Ciprofloxacin (Cipro 400mg/200ml Dsw) 400 mg in 200 mls @ 133 mls/hr IVPB Q12H [facility] Last Admin: 05/10/17 11:34 Dose: 133 mls/hr Ondansetron HCl (Zofran Inj) 4 mg IVP Q6 PRN PRN Reason: Nausea/Vomiting Pantoprazole Sodium (Protonix Ec Tab) 40 mg PO DAILY [facility] Last Admin: 05/10/17 11:34 Dose: 40 mg Potassium Chloride (K-Dur 20 Meq Er Tab) 40 meq PO BID [facility] Stop: 05/11/17 10:31 Last Admin: 05/10/17 11:34 Dose: 40 meq Trimethoprim/Sulfamethoxazole (Bactrim Ds Tab) 1 tab PO Q12H [facility] Last Admin: 05/10/17 14:30 Dose: 1 tab Physical Exam - Constitutional Appears: Non-toxic, Chronically Ill - Head Exam Head Exam: NORMOCEPHALIC - Eye Exam Eye Exam: PERRL. absent: Scleral icterus - ENT Exam ENT Exam: Mucous Membranes Dry, Normal External Ear Exam - Neck Exam Neck exam: Negative for: Lymphadenopathy - Respiratory Exam Respiratory Exam: Decreased Breath Sounds - Cardiovascular Exam Cardiovascular Exam: REGULAR RHYTHM - GI/Abdominal Exam GI & Abdominal Exam: Diminished Bowel Sounds, Soft. absent: Tenderness - Rectal Exam Rectal Exam: Deferred - Exam Exam: NORMAL INSPECTION - Extremities Exam Extremities exam: Negative for: pedal edema - Back Exam Back exam: absent: CVA tenderness (L), CVA tenderness (R) - Neurological Exam Neurological exam: Alert, CN II-XII Intact, Oriented x3, Reflexes Normal - Psychiatric Exam Psychiatric exam: Normal Mood - Skin Skin Exam: Dry, Intact Results - Vital Signs Recent Vital Signs: Last Vital Signs Temp 98.5 F 05/10/17 15:32 Pulse 73 05/10/17 15:32 Resp 20 05/10/17 15:32 BP 125/85 05/10/17 15:32 Pulse Ox 99 05/10/17 15:32 - Labs Result Diagrams: 05/10/17 04:53 05/10/17 04:53 Labs: Laboratory Results - last 24 hr 05/09/17 05/09/17 05/09/17 23:56 23:56 23:56 WBC 3.0 L RBC 4.72 Hgb 11.9 Hct 36.6 MCV 77.5 L MCH 25.1 L MCHC 32.4 L RDW 20.4 H Plt Count 132 MPV 9.8 Neut % (Auto) 48.7 L Lymph % (Auto) 42.8 H [place] % (Auto) 7.7 Eos % (Auto) 0.2 Baso % (Auto) 0.6 Neut # 1.4 L Lymph # 1.3 [place] # 0.2 Eos # 0.0 Baso # 0.0 PT 13.2 H INR 1.2 APTT 36 H Sodium 139 Potassium 3.5 L Chloride 101 Carbon Dioxide 22 Anion Gap 19 BUN 11 Creatinine 0.7 Est GFR ( Amer) > 60 Est GFR (Non-Af Amer) > 60 Random Glucose 89 Calcium 8.7 Total Bilirubin 0.4 AST 53 H D ALT 41 Alkaline Phosphatase 74 Total Protein 7.9 Albumin 3.9 Globulin 4.0 H Albumin/Globulin Ratio 1.0 Lipase 159 Urine Color Urine Clarity Urine pH Ur Specific [place] Urine Protein Urine Glucose (UA) Urine Ketones Urine Blood Urine Nitrate Urine Bilirubin Urine Urobilinogen Ur Leukocyte Esterase Urine WBC (Auto) Urine RBC (Auto) Ur Squamous Epith Cells Urine Bacteria Urine HCG, Qual Fluid Type CSF Volume CSF Appearance CSF WBC CSF RBC CSF Total Cell Counted CSF Monos/Macrophages CSF Comment CSF Glucose CSF Total Protein CSF Cryptococcus Ag 05/10/17 05/10/17 05/10/17 00:26 00:54 00:54 WBC RBC Hgb Hct MCV MCH MCHC RDW Plt Count MPV Neut % (Auto) Lymph % (Auto) [place] % (Auto) Eos % (Auto) Baso % (Auto) Neut # Lymph # [place] # Eos # Baso # PT INR APTT Sodium Potassium Chloride Carbon Dioxide Anion Gap BUN Creatinine Est GFR ( Amer) Est GFR (Non-Af Amer) Random Glucose Calcium Total Bilirubin AST ALT Alkaline Phosphatase Total Protein Albumin Globulin Albumin/Globulin Ratio Lipase Urine Color Brittany Urine Clarity Hazy Urine pH 5.0 Ur Specific [place] 1.023 Urine Protein 2+ H Urine Glucose (UA) Normal Urine Ketones Trace Urine Blood 3+ H Urine Nitrate Negative Urine Bilirubin Negative Urine Urobilinogen Normal Ur Leukocyte Esterase 2+ H Urine WBC (Auto) 49 H Urine RBC (Auto) 79 H Ur Squamous Epith Cells 13 H Urine Bacteria Occ H Urine HCG, Qual Negative Fluid Type Spinal fluid CSF Volume 1 CSF Appearance Clear/colorless CSF WBC 3.0 CSF RBC 2.0 H CSF Total Cell Counted TEST NOT PERFORMED CSF Monos/Macrophages TEST NOT PERFORMED CSF Comment CSF Glucose 49 CSF Total Protein 45.0 CSF Cryptococcus Ag 05/10/17 05/10/17 05/10/17 00:55 04:53 04:53 WBC 2.2 L RBC 4.50 Hgb 11.2 Hct 34.7 MCV 77.1 L MCH 24.9 L MCHC 32.3 L RDW 19.4 H Plt Count 122 L MPV 10.1 Neut % (Auto) 43.2 L Lymph % (Auto) 47.9 H [place] % (Auto) 7.9 Eos % (Auto) 0.2 Baso % (Auto) 0.8 Neut # 1.0 L Lymph # 1.1 [place] # 0.2 Eos # 0.0 Baso # 0.0 PT INR APTT Sodium 139 Potassium 3.2 L Chloride 104 Carbon Dioxide 20 L Anion Gap 18 BUN 9 Creatinine 0.6 L Est GFR ( Amer) > 60 Est GFR (Non-Af Amer) > 60 Random Glucose 97 Calcium 7.9 L Total Bilirubin 0.3 AST 47 H ALT 41 Alkaline Phosphatase 60 Total Protein 7.0 Albumin 3.4 L Globulin 3.6 Albumin/Globulin Ratio 0.9 L Lipase Urine Color Urine Clarity Urine pH Ur Specific [place] Urine Protein Urine Glucose (UA) Urine Ketones Urine Blood Urine Nitrate Urine Bilirubin Urine Urobilinogen Ur Leukocyte Esterase Urine WBC (Auto) Urine RBC (Auto) Ur Squamous Epith Cells Urine Bacteria Urine HCG, Qual Fluid Type CSF Volume CSF Appearance CSF WBC CSF RBC CSF Total Cell Counted CSF Monos/Macrophages CSF Comment CSF Glucose CSF Total Protein CSF Cryptococcus Ag Negative Assessment & Plan (1) AIDS (acquired immunodeficiency syndrome), CD4 <=200 Status: Acute (2) AIDS (acquired immunodeficiency syndrome), CD4 <=200 Status: Acute (3) Fever Status: Acute (4) Headache Status: Acute (5) Back pain Status: Acute - Assessment and Plan (Free Text) Assessment: r/o opportunistic infection consider MRI await cryptococcal ag/ cultures/ HSV PCR/ Lyme / WNV
[2017-05-10] MEDS ORDERED: Tramadol 25 mg PO ONE (21:28)
[2017-05-10] MEDS: Potassium Chloride 20 mEq/15 ml LIQ UD PO SCH (21:41)
[2017-05-11] MEDS: Tmp-Smz 800 mg-160 mg DS Tab PO SCH ×2 (01:33→14:00)
--- NOTE | 2017-05-11 04:41 | CON ---
DATE: HISTORY OF PRESENT ILLNESS: This is a 41-year-old black female with a past medical history of HIV, migraine, sciatica and headache. Came to the hospital with the headache and headache becoming constant. Also pain behind the eyes and complaint of photophobia. Called to evaluate the patient. PAST MEDICAL HISTORY: HIV, migraines, and sciatica. ALLERGIES: ALLERGY TO PENICILLIN. FAMILY HISTORY: Not significant. REVIEW OF SYSTEMS: A 10-point review of system was negative except headaches. PHYSICAL EXAMINATION: HEENT: Normocephalic and atraumatic. NECK: Supple. NEUROLOGIC: Alert, awake, and oriented x3. No aphasia. Cranial nerves II through XII are tested. Pupils reactive. EOM intact. Visual gage full. No facial asymmetry. Tongue midline. Motor examination, spontaneous movement of the extremities noted. Deep tendon reflexes 1+. Both plantars are downgoing. Sensory appears intact. Cerebellar and gait deferred. IMPRESSION AND PLAN: History of migraine headaches. They did a spinal tap. Protein glucose was normal. Cell count was normal and the patient is feeling better. CAT scan of the head was negative. Follow up with Dr. Wilson, infectious disease to look at her, and also put her on Topamax 25 mg one p.o. daily as a prevention for migraine headaches. Erlin Morrison MD
[2017-05-11] MEDS: Apap-Butalbital-Caffeine 325-50-40mg Tab PO PRN ×2 (07:11→11:02)
[2017-05-11 08:28] LABS: BASO % 1.1 % (0.0-2.0); EOS # 0.1 K/uL (0.0-0.7); EOS % 3.1 % (0.0-4.0); HEMATOCRIT 35.4 % (34.0-47.0); LYMPH # 1.2 K/uL (1.0-4.3); LYMPH % 62.1 % (20.0-40.0); MEAN CELL VOLUME 77.4 fL (81.0-99.0); MEAN CORPUSCULAR HGB CONC 32.4 g/dL (33.0-37.0); MEAN PLATELET VOLUME 9.9 fL (7.2-11.7); MONO # 0.2 K/uL (0.0-0.8); MONO % 8.6 % (0.0-10.0); NRBC % 0.7 % (0.0-2.0); RED CELL DISTRIBUTION WIDTH 19.6 % (11.5-14.5)
[2017-05-11 08:37] VITALS: BP 128/84; PULSE 73; TEMP 98.6; O2SAT 96
[2017-05-11 08:45] LABS: CHLORIDE 103 mmol/L (98-107); SODIUM 139 mmol/L (132-148)
[2017-05-11 08:46] LABS: POTASSIUM 3.5 mmol/L (3.6-5.2)
[2017-05-11 08:48] LABS: ALB/GLOB RATIO 0.9 (1.0-2.1); ALKALINE PHOSPHATASE 63 U/L (38-126); ALT/SGPT 48 U/L (9-52); AST/SGOT 66 U/L (14-36); BILIRUBIN,TOTAL 0.4 mg/dL (0.2-1.3); BLOOD UREA NITROGEN 6 mg/dL (7-17); CARBON DIOXIDE 21 mmol/L (22-30); GFR AFRICAN-AMERICAN > 60; GLUCOSE,RANDOM 92 mg/dL (65-105); PHOSPHOROUS 3.4 mg/dL (2.5-4.5); TOTAL PROTEIN 7.3 g/dL (6.3-8.3)
[2017-05-11 08:49] LABS: CALCIUM 8.4 mg/dl (8.6-10.4); MAGNESIUM 1.7 mg/dL (1.6-2.3)
[2017-05-11] MEDS ORDERED: Potassium Chloride 20 mEq ER Tab PO ONE (09:52)
[2017-05-11] MEDS ORDERED: Patient's Own Medication - Tablet/Capusle PO SCH (10:00)
[2017-05-11] MEDS ORDERED: Emtricitabine-Tenofovir 200 mg-300 mg Tab PO SCH (10:00)
[2017-05-11] MEDS ORDERED: Tramadol 25 mg PO ONE (10:00)
[2017-05-11] MEDS: Ciprofloxacin 400mg/200ml D5W 400 MG/200 ML BAG IVPB SCH (10:53)
[2017-05-11] MEDS: Sodium Chloride 0.9% 1,000 ML IV SCH (10:54)
[2017-05-11] MEDS: Pantoprazole 40 mg EC Tab PO SCH (10:54)
[2017-05-11] MEDS: Potassium Chloride 20 mEq/15 ml LIQ UD PO SCH (10:56)
--- NOTE | 2017-05-11 11:46 | CP.PCM.PN ---
Subjective - Date & Time of Evaluation Date of Evaluation: 05/11/17 Time of Evaluation: 08:00 - Subjective Subjective: c/o headache no fever alert awake nad MRI pending Objective - Vital Signs/Intake and Output Vital Signs (last 24 hours): Temp Pulse Resp BP Pulse Ox 98.6 F 73 20 128/84 96 05/11/17 08:00 05/11/17 08:00 05/11/17 08:00 05/11/17 08:00 05/11/17 08:00 - Medications Medications: Current Medications Acetaminophen (Tylenol 325mg Tab) 650 mg PO Q6 PRN PRN Reason: Fever >100.4 F Last Admin: 05/10/17 08:56 Dose: 650 mg Acetaminophen/Butalbital/Caffeine (Fioricet) 1 tab PO Q4 PRN PRN Reason: Headache Last Admin: 05/11/17 11:02 Dose: 1 tab Dolutegravir Sodium (Tivicay) 50 mg PO BID [facility] Last Admin: 05/11/17 10:55 Dose: 50 mg Emtricitabine/Tenofovir (Truvada 200 Mg-300 Mg) 1 tab PO DAILY [facility] Last Admin: 05/11/17 10:56 Dose: 1 tab Gabapentin (Neurontin) 300 mg PO QPM [facility] Last Admin: 05/10/17 21:40 Dose: 300 mg Home Med (Patient's Own Medication) 1 tab PO DAILY [facility] Sodium Chloride (Sodium Chloride 0.9%) 1,000 mls @ 100 mls/hr IV .Q10H [facility] Last Admin: 05/11/17 10:54 Dose: 100 mls/hr Ciprofloxacin (Cipro 400mg/200ml Dsw) 400 mg in 200 mls @ 133 mls/hr IVPB Q12H [facility] Last Admin: 05/11/17 10:53 Dose: 133 mls/hr Ondansetron HCl (Zofran Inj) 4 mg IVP Q6 PRN PRN Reason: Nausea/Vomiting Pantoprazole Sodium (Protonix Ec Tab) 40 mg PO DAILY [facility] Last Admin: 05/11/17 10:54 Dose: 40 mg Potassium Chloride (Potassium Chloride Oral Soln) 40 meq PO BID [facility] Stop: 05/11/17 11:55 Last Admin: 05/11/17 10:56 Dose: 40 meq Topiramate (Topamax) 25 mg PO DAILY [facility] Last Admin: 05/11/17 10:54 Dose: 25 mg Trimethoprim/Sulfamethoxazole (Bactrim Ds Tab) 1 tab PO Q12H [facility] Last Admin: 05/11/17 01:33 Dose: 1 tab - Labs Labs: 05/11/17 07:54 05/11/17 07:54 PT 13.2 SECONDS (9.7-12.2) H 05/09/17 23:56 INR 1.2 05/09/17 23:56 APTT 36 SECONDS (21-34) H 05/09/17 23:56 - Constitutional Appears: Non-toxic, Chronically Ill - Head Exam Head Exam: NORMOCEPHALIC - Eye Exam Eye Exam: PERRL - ENT Exam ENT Exam: Mucous Membranes Dry - Neck Exam Neck Exam: absent: Lymphadenopathy - Respiratory Exam Respiratory Exam: Decreased Breath Sounds - Cardiovascular Exam Cardiovascular Exam: REGULAR RHYTHM - GI/Abdominal Exam GI & Abdominal Exam: Distended, Soft - Rectal Exam Rectal Exam: Deferred - Extremities Exam Extremities Exam: absent: Pedal Edema - Back Exam Back Exam: absent: CVA tenderness (L), CVA tenderness (R) - Neurological Exam Neurological Exam: Alert, Awake, Oriented x3 Assessment and Plan (1) AIDS (acquired immunodeficiency syndrome), CD4 <=200 Status: Acute (2) AIDS (acquired immunodeficiency syndrome), CD4 <=200 Status: Acute (3) Fever Status: Acute (4) Headache Status: Acute (5) Back pain Status: Acute
--- NOTE | 2017-05-11 13:38 | CP.PCM.DIS ---
Provider - Provider Date of Admission: 05/10/17 00:23 Attending physician: Tripp Doll Jr, MD Time Spent in preparation of Discharge (in minutes): 31 Diagnosis - Discharge Diagnosis (1) Migraine Status: Acute (2) HIV (human immunodeficiency virus infection) Status: Acute (3) Intractable nausea and vomiting Status: Acute (4) Prophylactic measure Status: Acute (5) AIDS (acquired immunodeficiency syndrome), CD4 <=200 Status: Acute Hospital Course - Lab Results Lab Results: Micro Results 05/10/17 01:45 Urine Urine Culture - Final 50-100,000 CFU/ML. MULTIPLE SPECIES. SUGGEST REPEAT SPECIMEM. 05/10/17 00:58 Cerebral Spinal Fluid Gram Stain - Preliminary 05/10/17 00:58 Cerebral Spinal Fluid CSF Culture - Preliminary NO GROWTH AFTER 24 HOURS 05/10/17 00:30 Blood Blood Culture - Preliminary NO GROWTH AFTER 24 HOURS 05/10/17 00:39 Blood Blood Culture - Preliminary NO GROWTH AFTER 24 HOURS Most Recent Lab Values WBC 2.0 K/uL (4.8-10.8) L* 05/11/17 07:54 RBC 4.58 Mil/uL (3.80-5.20) 05/11/17 07:54 Hgb 11.5 g/dL (11.0-16.0) 05/11/17 07:54 Hct 35.4 % (34.0-47.0) 05/11/17 07:54 MCV 77.4 fL (81.0-99.0) L 05/11/17 07:54 MCH 25.0 pg (27.0-31.0) L 05/11/17 07:54 MCHC 32.4 g/dL (33.0-37.0) L 05/11/17 07:54 RDW 19.6 % (11.5-14.5) H 05/11/17 07:54 Plt Count 116 K/uL (130-400) L 05/11/17 07:54 MPV 9.9 fL (7.2-11.7) 05/11/17 07:54 Neut % (Auto) 25.1 % (50.0-75.0) L 05/11/17 07:54 Lymph % (Auto) 62.1 % (20.0-40.0) H 05/11/17 07:54 Levy % (Auto) 8.6 % (0.0-10.0) 05/11/17 07:54 Eos % (Auto) 3.1 % (0.0-4.0) 05/11/17 07:54 Baso % (Auto) 1.1 % (0.0-2.0) 05/11/17 07:54 Neut # 0.5 K/uL (1.8-7.0) L 05/11/17 07:54 Lymph # 1.2 K/uL (1.0-4.3) 05/11/17 07:54 Levy # 0.2 K/uL (0.0-0.8) 05/11/17 07:54 Eos # 0.1 K/uL (0.0-0.7) 05/11/17 07:54 Baso # 0.0 K/uL (0.0-0.2) 05/11/17 07:54 Differential Comment 05/11/17 07:54 PT 13.2 SECONDS (9.7-12.2) H 05/09/17 23:56 INR 1.2 05/09/17 23:56 APTT 36 SECONDS (21-34) H 05/09/17 23:56 Sodium 139 mmol/L (132-148) 05/11/17 07:54 Potassium 3.5 mmol/L (3.6-5.2) L 05/11/17 07:54 Chloride 103 mmol/L (98-107) 05/11/17 07:54 Carbon Dioxide 21 mmol/L (22-30) L 05/11/17 07:54 Anion Gap 19 (10-20) 05/11/17 07:54 BUN 6 mg/dL (7-17) L 05/11/17 07:54 Creatinine 0.7 MG/DL (0.7-1.2) 05/11/17 07:54 Est GFR ( Amer) > 60 05/11/17 07:54 Est GFR (Non-Af Amer) > 60 05/11/17 07:54 Random Glucose 92 mg/dL (65-105) 05/11/17 07:54 Calcium 8.4 mg/dl (8.6-10.4) L 05/11/17 07:54 Phosphorus 3.4 mg/dL (2.5-4.5) 05/11/17 07:54 Magnesium 1.7 mg/dL (1.6-2.3) 05/11/17 07:54 Total Bilirubin 0.4 mg/dL (0.2-1.3) 05/11/17 07:54 AST 66 U/L (14-36) H D 05/11/17 07:54 ALT 48 U/L (9-52) 05/11/17 07:54 Alkaline Phosphatase 63 U/L (38-126) 05/11/17 07:54 Total Protein 7.3 g/dL (6.3-8.3) 05/11/17 07:54 Albumin 3.5 g/dL (3.5-5.0) 05/11/17 07:54 Globulin 3.7 gm/dL (2.2-3.9) 05/11/17 07:54 Albumin/Globulin Ratio 0.9 (1.0-2.1) L 05/11/17 07:54 Lipase 159 U/L (23-300) 05/09/17 23:56 Urine Color Brittany (YELLOW) 05/10/17 00:26 Urine Clarity Hazy (Clear) 05/10/17 00:26 Urine pH 5.0 (5.0-8.0) 05/10/17 00:26 Ur Specific [place] 1.023 (1.003-1.030) 05/10/17 00:26 Urine Protein 2+ mg/dL (NEGATIVE) H 05/10/17 00:26 Urine Glucose (UA) Normal mg/dL (Normal) 05/10/17 00:26 Urine Ketones Trace mg/dL (NEGATIVE) 05/10/17 00:26 Urine Blood 3+ (NEGATIVE) H 05/10/17 00:26 Urine Nitrate Negative (NEGATIVE) 05/10/17 00:26 Urine Bilirubin Negative (NEGATIVE) 05/10/17 00:26 Urine Urobilinogen Normal mg/dL (0.2-1.0) 05/10/17 00:26 Ur Leukocyte Esterase 2+ Tigist/uL (Negative) H 05/10/17 00:26 Urine WBC (Auto) 49 /hpf (0-5) H 05/10/17 00:26 Urine RBC (Auto) 79 /hpf (0-3) H 05/10/17 00:26 Ur Squamous Epith Cells 13 /hpf (0-5) H 05/10/17 00:26 Urine Bacteria Occ (<OCC) H 05/10/17 00:26 Urine HCG, Qual Negative (NEGATIVE) 05/10/17 00:26 Fluid Type Spinal fluid 05/10/17 00:54 CSF Volume 1 mL (0-1) 05/10/17 00:54 CSF Appearance Clear/colorless (CLEAR) 05/10/17 00:54 CSF WBC 3.0 /mm3 (0.0-5.0) 05/10/17 00:54 CSF RBC 2.0 /mm3 (0.0-0.0) H 05/10/17 00:54 CSF Total Cell Counted TEST NOT PERFORMED 05/10/17 00:54 CSF Monos/Macrophages TEST NOT PERFORMED 05/10/17 00:54 CSF Comment 05/10/17 00:54 CSF Glucose 49 mg/dL (40-70) 05/10/17 00:54 CSF Total Protein 45.0 mg/dL (12-60) 05/10/17 00:54 CSF Cryptococcus Ag Negative (NEGATIVE) 05/10/17 00:55 - Hospital Course Hospital Course: On admission: "This is a 41 year old female with PMHx HIV, Migraines, Sciatica who presents to the hospital complaining of headache. Patient states that her migraines are usually intermittent however during this last week they have worsened and become constant. Patient describes the sensation as a pulsatile pain behind her eyes. Patient complains of photophobia but denies phonophobia, scintillating scotomas. Patient admits subjective fever for about 3 days. Denies chills, chest pain, dyspnea, cough, abdominal pain, dysuria. Patient denies neck pain or stiff neck. Patient has also had poor appetite. Patient also complaining of intractable nausea and vomiting for the past 3 days. The contents of the vomit are usually food. Denies hematemesis. Patient also complaining of her usual low back pain which radiates down her legs." Hospital Course: Patient admitted for headache to rule out meningitis given her history of HIV/ AIDS and placed on isolation precautions. Patient follows with [facility] for her HIV management. Per patient, her CD4 count was 69 and viral load undetectable. Lumbar spinal tap was unremarkable for meningitis. Nausea/vomiting resolved. Neurology Dr. Morrison consulted. Dr. Morrison recommended Gabapentin 300 mg HS and Topamax 25 mg daily for migraine prevention. Patient also with UTI but had prescription from ER visit prior to admission visit, so she will continue with that on discharge. Patient discharged with prescriptions for neurology recommendations as well as Bactrim DS for prophylaxis. Patient instructed to follow up for her HIV/AIDS management which she states that she is compliant with. Discharge Exam - Head Exam Head Exam: ATRAUMATIC, NORMOCEPHALIC - Eye Exam Eye Exam: EOMI, PERRL - ENT Exam ENT Exam: Mucous Membranes Moist - Respiratory Exam Respiratory Exam: Clear to PA & Lateral. absent: Rales, Rhonchi, Wheezes - Cardiovascular Exam Cardiovascular Exam: REGULAR RHYTHM, +S1, +S2 - GI/Abdominal Exam GI & Abdominal Exam: Normal Bowel Sounds, Soft. absent: Tenderness - Extremities Exam Extremities exam: pedal pulses present - Neurological Exam Neurological exam: Alert, CN II-XII Intact, Oriented x3 - Psychiatric Exam Psychiatric exam: Normal Affect, Normal Mood - Skin Skin Exam: Dry, Intact, Normal Color, Warm Discharge Plan - Discharge Medications Prescriptions: Gabapentin [Neurontin] 300 mg PO HS 30 Days #30 cap Sulfamethoxazole/Trimethoprim [Bactrim DS Tab] 1 tab PO Q12H 30 Days #60 tab Topiramate [Topamax] 25 mg PO DAILY 30 Days #30 tab - Follow Up Plan Condition: STABLE Disposition: HOME/ ROUTINE Instructions: Sulfamethoxazole/Trimethoprim (By mouth), Gabapentin (By mouth), Topiramate (By mouth), Urinary Tract Infection in Women (DC), Migraine Headache (DC), Regular Diet (DC) Additional Instructions: [facility] of your [facility]. Please take the Gabapentin 300 mg at bedtime every night. Please take the Topamax 25 mg every day. It is recommended that you take it in the evening due to the sedating side effects. Please follow up with Dr. Morrison the neurologist for management of migraine headaches. Please take the Bactrim DS by mouth twice a day. Please follow up with your primary doctor within 1 week of discharge. Please continue to take the Ciprofloxacin that was prescribed by the emergency room physician which you stated was in your pocketbook. If there are any new or worsening symptoms, please return to the emergency room. Referrals: Narayan Morrison MD [Staff Provider] - 1 Week Tripp Doll Jr., MD [Medical Doctor] - 1 Week
== END 2017-05-11 18:30 | disposition home or self-care (01) | DRG 532 ==
LOC: C.ER 22:27 → C.9E 05-10 00:23 → C.5S 05-10 04:28
PROVIDERS: ADMIT Internal Medicine; ATTEND Internal Medicine
PROC: 009U3ZX Drainage of Spinal Canal, Percutaneous Approach, Diagnostic (ICD-10-PCS; principal; 2017-05-10)
DX: G43.909 Migraine, unspecified, not intractable, without status migrainosus (principal); B20 Human immunodeficiency virus [HIV] disease; N39.0 Urinary tract infection, site not specified; I10 Essential (primary) hypertension; L60.0 Ingrowing nail; F17.210 Nicotine dependence, cigarettes, uncomplicated; E11.9 Type 2 diabetes mellitus without complications; F41.9 Anxiety disorder, unspecified; Z98.51 Tubal ligation status; Z88.0 Allergy status to penicillin

== ENCOUNTER 2018-10-10 19:33 | Emergency (ER) | payer OTHER ==
[2018-10-10 19:33] VITALS: BMI 39.4
[2018-10-10 19:47] VITALS: BP 135/84; PULSE 75; TEMP 98
[2018-10-10] MEDS ORDERED: Albuterol-Ipratrop 3 mg / 0.5 (3 ml) UD INH STA (20:03)
[2018-10-10] MEDS ORDERED: Albuterol-Ipratrop 3 mg / 0.5 (3 ml) UD ONE (20:09)
--- NOTE | 2018-10-10 20:12 | C.PDOC ---
History Of Present Illness 43 y/o female with hiv c/o persistent cough and pleuritic chest pain since last night. denies fever or chills. +hoarse throat and rhinorrhea. no flu vaccine. denies sick contacts. pt using albuterol inhaler at home. most recent CD4 was 250. denies myalgias, nausea, vomiting, diarrhea, and abdominal pain. Time Seen by Provider: 10/10/18 19:49 Chief Complaint (Nursing): Cough, Cold, Congestion History Per: Patient History/Exam Limitations: no limitations Onset/Duration Of Symptoms: Days Current Symptoms Are (Timing): Still Present Past Medical History Reviewed: Historical Data, Nursing Documentation, Vital Signs Vital Signs: Last Vital Signs Temp 98 F 10/10/18 19:44 Pulse 75 10/10/18 19:44 Resp 14 10/10/18 19:44 BP 135/84 10/10/18 19:44 Pulse Ox 100 10/10/18 19:44 - Medical History PMH: Anxiety, Back Problems, Bronchitis, Depression, Diabetes (pre), HIV, HTN Denies: Asthma, Chronic Kidney Disease - [facility] Procedures DRAINAGE OF SPINAL CANAL, PERCUTANEOUS APPROACH, DIAGNOSTIC (05/10/17) Family History: States: Diabetes, Hypertension - Social History Hx Tobacco Use: Yes Hx Alcohol Use: No Hx Substance Use: No - Immunization History Hx Tetanus Toxoid Vaccination: Yes Hx Influenza Vaccination: Yes Hx Pneumococcal Vaccination: Yes Review Of Systems Constitutional: Negative for: Fever, Chills, Weakness, Malaise ENT: Positive for: Other (rhinorrhea). Negative for: Throat Pain Cardiovascular: Negative for: Chest Pain Respiratory: Positive for: Cough, Pleuritic Pain Gastrointestinal: Negative for: Nausea, Vomiting, Abdominal Pain Genitourinary: Negative for: Dysuria Neurological: Negative for: Weakness, Numbness Physical Exam - Physical Exam Appears: Non-toxic, No Acute Distress, Other (Coughing) Skin: Warm, Dry Head: Atraumatic, Normacephalic Eye(s): bilateral: PERRL Ear(s): Bilateral: Normal Oral Mucosa: Moist Throat: No Erythema, No Exudate, Other (uvula midline) Cardiovascular: Rhythm Regular, No Murmur Respiratory: No Rales, No Rhonchi, No Wheezing Extremity: Bilateral: Atraumatic, Normal ROM Neurological/Psych: Oriented x3, Normal Speech, Normal Cognition ED Course And Treatment O2 Sat by Pulse Oximetry: 100 (RA) Pulse Ox Interpretation: Normal Medical Decision Making Medical Decision Making: Plan: --Chest XR --Nebulizer treatment --Motrin PO --POC 2037 wet read xray fluid right median fissure, peribronchial cuffing. will treat with zpak and albuterol Disposition Counseled Patient/Family Regarding: Studies Performed, Diagnosis, Need For Followup, Rx Given - Disposition Disposition: HOME/ ROUTINE Disposition Time: 20:41 Condition: GOOD Additional Instructions: Drink increased fluids, avoid dairy products for a few days. Take medications as prescribed. Follow u0p with your doctor in 1-2 days. Take Tylenol or Motrin for pain. Return to ER for any worsening symptoms. Prescriptions: Albuterol HFA [Ventolin HFA 90 mcg/actuation (8 g)] 2 puff IH Q6 #1 inhaler Azithromycin [Zithromax] 250 mg PO DAILY #6 tab Instructions: Upper Respiratory Infection (ED) Forms: [facility] ([place]), General Discharge Instructions - Clinical Impression Clinical Impression: Upper respiratory infection - PA / PANEL CUTTER / Resident Statement MD/DO has reviewed & agrees with the documentation as recorded. - Scribe Statement The provider has reviewed the documentation as recorded by the Scribe Sabrina Davis All medical record entries made by the Reubenibmohit were at my direction and per sonally dictated by me. I have reviewed the chart and agree that the record accurately reflects my personal performance of the history, physical exam, medical decision making, and the department course for this patient. I have also personally directed, reviewed, and agree with the discharge instructions and disposition.
[2018-10-10 20:58] VITALS: RESP 18
--- NOTE | 2018-10-11 10:12 | RAD ---
HISTORY: cough hiv COMPARISON: None available TECHNIQUE: Chest PA and lateral FINDINGS: LUNGS: No focal consolidation. Please note that chest x-ray has limited sensitivity for the detection of pulmonary masses. PLEURA: No significant pleural effusion identified. No definite pneumothorax . CARDIOVASCULAR: Heart size appears within normal limits. No atherosclerotic calcification present. OSSEOUS STRUCTURES: No acute osseous abnormality identified. VISUALIZED UPPER ABDOMEN: Unremarkable. OTHER FINDINGS: None. IMPRESSION: No focal consolidation.
[2018-10-11 18:40] VITALS: O2SAT 100
== END 2018-10-10 20:57 | disposition home or self-care (01) ==
LOC: C.ER 19:33
DX: J06.9 Acute upper respiratory infection, unspecified (principal); Z21 Asymptomatic human immunodeficiency virus [HIV] infection status; I10 Essential (primary) hypertension; Z72.0 Tobacco use